=== PATIENT | female | born 1970 | race African-American/Black ===

== ENCOUNTER 2018-06-30 15:22 | Emergency (ER) | payer MEDICAID ==
[~2018-06-30] VITALS: Ht 157.5 cm; Wt 81.8 kg
[2018-06-30 15:44] VITALS: Ht 157.5 cm; Wt 81.8 kg
[2018-06-30] MEDS ORDERED: LISINOPRIL10 MG PO (15:46)
[2018-06-30] MEDS ORDERED: KLONOPIN1 MG PO (15:48)
[2018-06-30] MEDS ORDERED: CELEXA20 MG PO (15:48)
[2018-06-30] MEDS ORDERED: NORCO 10-325 TA1 TAB PO (15:48)
[2018-06-30] MEDS ORDERED: ZOCOR80 MG PO (15:49)
[2018-06-30 16:14] LABS: BASOPHILS 0.1 % (0-2); EOSINOPHILS 0.6 % (0-7); HEMATOCRIT 36.2 % (36.0-48.0); HEMOGLOBIN 11.8 g/dL (12-16); IMMATURE GRANULOCYTES 0.2 % (0-5); LYMPHOCYTES 27.1 % (15-50); MCH 28.8 pg (26.0-34.0); MCHC 32.6 g/dL (31.0-37.0); MCV 88.3 fL (80.0-100.0); MEAN PLATELET VOLUME 9.4 fL (7.4-10.4); MONOCYTES 7.6 % (2-11); NEUTROPHILS 64.4 % (40-80); PLATELET COUNT 361 10x3/uL (130-400); RDW 15.1 % (11.5-14.5); WBC 8.5 10x3/uL (4.8-10.8)
[2018-06-30 16:29] LABS: ALBUMIN 3.3 g/dL (3.4-5.0); ALKALINE PHOSPHATASE 88 U/L (46-116); ALT (SGPT) 25 U/L (10-68); BILIRUBIN - TOTAL 0.39 mg/dL (0.2-1.3); CALC OSMOLALITY 276 mosm/kg (275-300); CALCIUM 8.3 mg/dL (8.5-10.1); CARBON DIOXIDE 30.8 mmol/L (21.0-32.0); CHLORIDE - SERUM 104 mmol/L (98-107); CREATININE - SERUM 0.8 mg/dL (0.6-1.3); GLUCOSE 93 mg/dL (74-106); POTASSIUM - SERUM 3.9 mmol/L (3.5-5.1); PROTEIN - SERUM 7.6 g/dL (6.4-8.2); SODIUM 139 mmol/L (136-145); UREA NITROGEN 10 mg/dL (7-18); eGFR NON AFRICAN AMERICAN 82 mL/min (90-120)
[2018-06-30 16:33] LABS: AMYLASE - SERUM 77 U/L (25-115); LIPASE 232 U/L (73-393)
[2018-06-30 16:39] LABS: TROPONIN-I < 0.017 ng/mL (0.000-0.060)
[2018-06-30 17:13] LABS: APPEARANCE CLEAR (CLEAR); BILIRUBIN NEGATIVE (NEGATIVE); COLOR STRAW (YELLOW); GLUCOSE NEGATIVE (NEGATIVE); KETONE NEGATIVE (NEGATIVE); NITRITE NEGATIVE (NEGATIVE); PROTEIN NEGATIVE (NEGATIVE); SPECIFIC GRAVITY 1.015 (1.005-1.020); UROBILINOGEN NORMAL (NORMAL)
[2018-06-30 17:22] LABS: HCG URINE NEGATIVE (NEGATIVE)
[2018-06-30 20:01] VITALS: BP 138/71
== END 2018-06-30 20:01 | disposition home or self-care (01) ==
LOC: D.ER 15:22
PROVIDERS: Family Medicine
DX: K59.00 Constipation, unspecified (principal); R10.31 Right lower quadrant pain; R10.32 Left lower quadrant pain; I10 Essential (primary) hypertension